=== PATIENT | male | born 1955 | race Caucasian/White ===

== ENCOUNTER 2018-01-25 09:55 | Day surgery (SDC) | payer MEDICAID ==
[2018-01-24 10:22] VITALS: BMI 22.8
[2018-01-25] MEDS ORDERED: Propofol 10 mg/ml Inj (20 ML) ONE (12:12)
[2018-01-25 13:03] VITALS: TEMP 97
[2018-01-25 13:19] VITALS: O2SAT 99
[2018-01-25 13:21] VITALS: BP 140/80; PULSE 72; RESP 18
== END 2018-01-25 13:25 | disposition home or self-care (01) ==
LOC: C.ENDO 09:55
PROVIDERS: ATTEND Internal Medicine Gastroenterology
DX: K21.9 Gastro-esophageal reflux disease without esophagitis (principal); K20.9 Esophagitis, unspecified; K44.9 Diaphragmatic hernia without obstruction or gangrene; K29.70 Gastritis, unspecified, without bleeding
CPT/HCPCS: 43239; 88305; 88312; 88342; J2001; J2704

== ENCOUNTER 2018-07-31 10:24 | Outpatient (CLI) | payer MEDICAID | END 2018-07-31 10:25 | disposition home or self-care (01) | LOC: C.VASC 10:24 ==